=== PATIENT | female | born 1965 | race Caucasian/White ===

== ENCOUNTER 2017-10-22 07:58 | Outpatient (CLI) | payer BC ==
--- NOTE | 2017-10-22 09:25 | ULT ---
ULTRASOUND HEPATIC DOPPLER: HISTORY: Abnormal results of liver function tests, R94.5. Constipation due to pain medication, K59.03. COMPARISON: None. TECHNIQUE: Real-time, kyle scale, color Doppler, and spectral analysis of the liver was performed. Visualized p ortions of the pancreas were unremarkable. The liver measures 14.6 cm in length. Echotexture is mil dly heterogeneous. IVC is unremarkable. The portal vein is patent. Antegrade flow and normal [place]. The right kidney measures 9.8 x 5.2 cm. The spleen measures 9.5 cm in length. Splenic artery and vein are patent. Left and right portal vein are patent. Common bile duct is dilated at 1.4 cm. Sonographic Ramos's sign is negative. Prior cholecystectomy. The hepatic veins are patent with normal phasicity. IMPRESSION: 1. Normal Doppler examination of the liver. 2. Dilated common bile duct measuring up to 1.4 cm. This may reflect reservoir effect from prior ch olecystectomy as there is no significant intrahepatic biliary dilatation. Nonemergent CT or MRI may be beneficial to evaluate for distal obstructing process if clinically warranted. POS: [facility]
== END 2017-10-22 07:59 | disposition home or self-care (01) ==
LOC: SCSULT 07:58
PROVIDERS: ATTEND Internal Medicine
DX: K59.03 Drug induced constipation (principal); R94.5 Abnormal results of liver function studies; K83.8 Other specified diseases of biliary tract
CPT/HCPCS: 76705

== ENCOUNTER 2018-07-11 14:23 | Outpatient (CLI) | payer BC ==
--- NOTE | 2018-07-11 14:58 | ULT ---
US Soft Tissue Other History: [Reason For Study] Comparison: None. Findings: There is abnormal altered echotexture in the area of interest of the right back at the area of lump. There is a focal area of increased echotexture measuring 2.6 x 1 x 3.1 cm. This is asymmetric to the patient's left side of the lower back. Impression: Focal ovoid area of abnormal increased echotexture at the area of interest may be sequela e of scar or granulation tissue from prior surgery less likely a lipoma. CT or MRI has greater sensitivity if clinically warranted.
--- NOTE | 2018-07-11 15:03 | RAD ---
XR Ribs Rt>=2 view STANDARD History: [Rib pain] Comparison: None. Findings: Visualized lungs are clear. Dorsal column stimulator is in place. Each material in the left upper quadrant of the abdomen. No displaced rib fracture. Dense calcificati ons of the costal cartilage. Extensive postoperative changes of the lumbar spine. Impression: No acute osseous abnormality.
[2018-07-11 16:40] LABS: HBSAB Concentration 3.43 mIU/mL; Hep B Surf AB Non-Reactive (NonReactive)
== END 2018-07-11 14:24 | disposition home or self-care (01) ==
LOC: SCSULT 14:23
PROVIDERS: ATTEND Family Medicine
DX: Z01.84 Encounter for antibody response examination (principal); R07.81 Pleurodynia; R22.2 Localized swelling, mass and lump, trunk
CPT/HCPCS: 36415; 76999; 86706; 86735; 86762; 86765; 86787

== ENCOUNTER 2018-07-12 11:46 | Emergency (ER) | payer BC ==
[~2018-07-12 11:46] MED LIST: Iopamidol 370 76% 100 ML VIAL ONE; Iopamidol 370 76% 50 ML VIAL FS ONE
[2018-07-12 13:35] LABS: #Eosinphils 0.1 thou/uL (0.0-0.7); #Lymphocytes 1.8 thou/uL (1.20-3.40); #Monocytes 0.3 thou/uL (0.11-0.59); #Neutrophils 2.8 thou/uL (1.40-6.50); %Eosinophils 1.9 % (0.0-10.0); %Lymphocytes 35.6 % (21.0-51.0); %Monocytes 5.1 % (0.0-10.0); %Neutrophils 56.5 % (42.0-75.0); Hemoglobin 11.8 g/dL (12.0-16.0); Mean Corpuscular HGB CONC 31.9 g/dL (32.0-36.0); Mean Corpuscular Hemoglobin 27.1 pg (27.0-31.0); Mean Platelet Volume 7.9 fL (7.4-10.4); Platelet Count 277 thou/uL (130-400); Red Blood Cell (RBC) Count 4.35 mill/uL (4.20-5.40)
[2018-07-12] MEDS ORDERED: Ondansetron PF 4 MG/2 ML Vial ONE (13:35)
[2018-07-12] MEDS ORDERED: Ondansetron ODT 4 MG TAB ONE (13:38)
[2018-07-12 13:45] LABS: BHCG - Serum Negative (NEGATIVE); Pregs Control Background? CLEAR/WHITE (CLR/WHITE); Pregs Control Bar Appear? YES (CONTROL BAR)
[2018-07-12 14:00] LABS: ALT (SGPT) 18 U/L (8-55); AST (SGOT) 23 U/L (5-34); Albumin 4.5 g/dL (3.5-5.0); Alkaline Phosphatase 55 U/L (40-150); Anion Gap 13 mmol/L (10-20); BUN (Urea Nitrogen) 17 mg/dL (9.8-20.1); Bilirubin, Total 0.2 mg/dL (0.2-1.2); Calc. Creatinine Clearance 0 mL/min (70-130); Calcium 9.9 mg/dL (7.8-10.44); Carbon Dioxide 26 mmol/L (22-29); Chloride 104 mmol/L (98-107); Estimated GFR-MDRD 83; Globulin 2.8 g/dL (2.4-3.5); Glucose 93 mg/dL (70-105); Lipase 21 U/L (8-78); Protein, Total 7.3 g/dL (6.0-8.3); Sodium 139 mmol/L (136-145)
[2018-07-12 15:11] LABS: Bilirubin Negative (Negative); Blood, Urine Negative (Negative); Clarity CLEAR (Clear); Glucose, Urine (Dipstick) Negative (Negative); Leukocyte Negative (Negative); Nitrite Negative (Negative); Protein, Urine (Dipstick) Negative (Neg-Trace); Specific Gravity, Urine 1.005 (1.002-1.036); Urobilinogen 0.2 mg/dL (0.2-1.0)
--- NOTE | 2018-07-12 15:25 | CT ---
CT ABDOMEN AND PELVIS WITH IV CONTRAST 07/12/2018 CLINICAL INFORMATION: Abdominal and flank pain. COMPARISON: Study obtained at [facility] on 02/10/2018 Technique: Multiple contiguous axial CT images are obtained through the abdomen and pelvis with IV contrast. Cor onal reformatted images are provided. FINDINGS: Lower Chest: The lung bases are clear. There is been resolution of bilateral pleural effusions noted on prior study. Bilateral breast prostheses are again partially imaged. Vessels: The abdominal aorta is normal in caliber. Abdomen: Portal vein:Patent Gallbladder: Not visualized and likely surgically absent. There is evidence of pneumobilia with dilat ation of intra and extrahepatic bile ducts. Pneumobilia was not present on prior exam, but there was intra and extrahepatic biliary duct dilatation. The biliary ductal dilatation may be related to r eservoir effect from prior cholecystectomy. Liver: No focal hepatic lesion is seen. No subcapsular collection is identified. Pancreas: within normal limits. Spleen: Normal appearance for phase of imaging. Adrenals: within normal limits. Kidneys: Tiny subcentimeter too small to characterize hypodense lesion is again seen in the inferior pole right kidney. Kidneys otherwise demonstrate a normal CT appearance bilaterally. Bowel: Postsurgical changes are again seen likely related to prior gastric bypass procedure. There is dilatation of a loop of small bowel in the region of postsurgical change, but this is similar to prior exam. Appendix: The appendix is visualized and normal in caliber. Peritoneum: No ascites or free air; no fluid collection. Mesentery and Retroperitoneum: No enlarged mesenteric or retroperitoneal lymph nodes. Abdominal Wall: Again noted is a herniation of fat at the posterolateral left flank. A portion of the transverse colon extends up to the level of the defect. Pelvis: Reproductive Organs: The uterus is not visualized likely related to hysterectomy. Pelvis within normal limits. Bladder: Urinary bladder is incompletely distended. Henriquez of the urinary bladder do appear mildly thi ckened which is probably attributable to incomplete distention. Cystitis in the correct clinical scenario cannot be entirely excluded. Bones: Multilevel postsurgical changes of the lumbar spine are again seen. Dorsal column stimulator d evice is again noted in place. IMPRESSION: 1. No acute findings are seen in the abdomen or pelvis. 2. Postsurgical changes related to cholecystectomy and hysterectomy as well as probable gastric bypas s procedure. 3. Pneumobilia and biliary ductal dilatation which may be related to reservoir effect from prior chol ecystectomy. 4. Herniation of fat through the posterior oblique musculature at the left posterolateral flank. This is a stable finding. 5. Thickening of the henriquez urinary bladder probably attributable to incomplete distention, but cystit is cannot be excluded in the correct clinical scenario.
[2018-07-12] MEDS ORDERED: Ketorolac Tromethamine 30 MG/ML VIAL ONE (16:04)
== END 2018-07-12 16:12 | disposition home or self-care (01) ==
LOC: ERS 11:46
DX: M79.89 Other specified soft tissue disorders (principal); R10.11 Right upper quadrant pain; M06.9 Rheumatoid arthritis, unspecified; Z79.899 Other long term (current) drug therapy
CPT/HCPCS: 36415; 74177; 80053; 81003; 83605; 83690; 84703; 85025; 96374; J1885; J2405; Q0162; Q9967